=== PATIENT | female | born 1990 | race Two or more races ===

== ENCOUNTER 2016-07-06 02:45 | Emergency (ER) | payer OTHER ==
[2016-07-06] MEDS ORDERED: LORAZEPAM 1 MG TABLET ONE (03:03)
[2016-07-06] MEDS ORDERED: DIPHENHYDRAMINE HCL 50 MG CAPSULE ONE (03:05)
== END 2016-07-06 03:43 | disposition home or self-care (01) ==
LOC: ED 02:45
DX: F41.9 Anxiety disorder, unspecified (principal); F12.10 Cannabis abuse, uncomplicated; Z79.899 Other long term (current) drug therapy
CPT/HCPCS: 99283 ×2; 93005; A9270 ×2

== ENCOUNTER 2016-07-08 20:16 | Emergency (ER) | payer OTHER ==
[2016-07-08] MEDS ORDERED: DIAZEPAM 5 MG TABLET ONE (22:35)
== END 2016-07-08 22:59 | disposition home or self-care (01) ==
LOC: ED 20:16
DX: F41.9 Anxiety disorder, unspecified (principal)